=== PATIENT | female | born 1955 | race Caucasian/White ===

== ENCOUNTER 2019-11-04 16:00 | Outpatient (RCR) | payer MEDICARE, OTHER ==
[~2019-11-04 16:00] MED LIST: ALAVERT10 M1 PO; ASPIRIN E.C. 8181 MG PO; CELEBREX200 MG PO; CLOBETASOL0.05% TP; DETROL LA 4MG4 MG PO; IMURAN 50MG TAB50 MG PO; MICARDIS HCT 121 TA1 PO; PENTASA500 MG PO; PREMARIN .3MG0.3 MG PO; PROVENTIL0.09 MG/A1 IH; VITAMIN D1000 IU PO
== END 2019-11-23 16:25 | disposition home or self-care (01) ==
LOC: WSC 16:00
DX: M17.0 Bilateral primary osteoarthritis of knee (principal)